=== PATIENT | male | born 1940 | race Caucasian/White ===

== ENCOUNTER 2018-09-29 13:11 | Inpatient (IN) | payer MEDICARE ==
[~2018-09-29] VITALS: Ht 177.8 cm; Wt 86.7 kg
[2018-09-29] VITALS (61 sets, daily range): BP systolic 96–99; BP diastolic 62; PULSE 64–70; TEMP 97.4–97.6; O2SAT 98–100
[2018-09-29 13:23] LABS: ARTERIAL BLD GAS O2 SATURATION 98.9 % (92-100); ARTERIAL BLD GAS TCO2 CT 37.1; ARTERIAL BLOOD GAS BASE EXCESS 10.8 (-2-2); ARTERIAL BLOOD GAS HCO3 35.6 meq/L (22-26); ARTERIAL BLOOD GAS PCO2 49.1 mmHg (35-45); ARTERIAL BLOOD GAS pH 7.48 (7.35-7.45)
[2018-09-29 13:24] LABS: ARTERIAL BLOOD GAS PO2 184.5 mmHg (80-100)
[2018-09-29 13:36] LABS: COLLECTION METHOD CLEAN CATCH
[2018-09-29] MEDS ORDERED: FOLIC ACID 11 MG/TA1 PO (13:43)
[2018-09-29 13:44] LABS: BASO % 0.3 % (0.0-2.0); EOS % 0.3 % (0-4.0); GRAN # 2.1 (1.4-6.5); GRAN % 60.7 % (42.2-75.2); LYMPH # 0.7 (1.2-3.4); LYMPH % 18.5 % (20.0-51.0); MEAN CELL VOLUME 106 fl (80.0-100.0); MEAN CORPUSCULAR HGB CONC 31 g/dl (33.0-37.0); MEAN PLATELET VOLUME 14.2 fl (7.4-10.4); MONO # 0.7 (0.1-0.6); MONO % 19.1 % (1.7-9.3); RED BLOOD COUNT 2.46 M/mm3 (4.20-5.60); REDCELL DISTRIBUTION WIDTH-CV 18.3 % (11.5-14.5)
[2018-09-29] MEDS ORDERED: IMDUR 60MG60 MG/TAB PO ×2 (13:44→17:57)
[2018-09-29] MEDS ORDERED: AMITIZA 8MCG8 MCG PO ×2 (13:44→17:56)
[2018-09-29] MEDS ORDERED: COREG 3.123.125 MG/T PO (13:45)
[2018-09-29] MEDS ORDERED: PROTONIX 40MG T40 MG PO (13:45)
[2018-09-29 13:47] LABS: HEMATOCRIT 26.1 % (42.0-52.0); HEMOGLOBIN 8.2 g/dl (13.5-18.0); MEAN CORPUSCULAR HEMOGLOBIN 33 pg (27.0-31.0)
[2018-09-29] MEDS ORDERED: VITAMIN B-1000 MCG/T PO (13:47)
[2018-09-29 13:48] LABS: PLATELET COUNT 42 K/mm3 (130-400)
[2018-09-29] MEDS ORDERED: NEURONTIN100 MG/CAP PO (13:48)
[2018-09-29] MEDS ORDERED: FERRO-TIME325 MG PO (13:48)
[2018-09-29] MEDS ORDERED: MICRO-K 10 EXT10 MEQ PO (13:49)
[2018-09-29 14:01] LABS: HYALINE CAST >12 /lpf; MUCOUS Present /lpf; PH 5 (5-8); SQUAMOUS EPITHELIAL 0-2 /hpf; URINE APPEARANCE Cloudy; URINE BACTERIA Rare /hpf; URINE BILIRUBIN Negative (NEGATIVE); URINE BLOOD Negative (NEGATIVE); URINE COLOR Yellow; URINE GLUCOSE Negative (NEGATIVE); URINE KETONE Negative (NEGATIVE); URINE LEUKOCYTE ESTERASE Negative (NEGATIVE); URINE NITRATE Negative (NEGATIVE); URINE PROTEIN(semi-quant) Negative (NEGATIVE)
[2018-09-29 14:11] LABS: ALBUMIN 3.3 gm/dL (3.5-5.0); BILIRUBIN,TOTAL 2.2 mg/dL (0.0-1.0); CREATININE, serum 1.91 mg/dL (0.66-1.25); POTASSIUM 4.5 mmol/L (3.4-5.0); TOTAL PROTEIN 6.3 gm/dL (6.4-8.2)
[2018-09-29] MEDS ORDERED: ASPIRIN 81M81 MG/TA2 PO (14:13)
[2018-09-29] MEDS ORDERED: BUMEX2 MG PO (14:13)
[2018-09-29] MEDS ORDERED: THEREMS1 TAB PO (14:13)
[2018-09-29] MEDS ORDERED: PLAVIX 75MG TAB75 MG PO (14:14)
[2018-09-29] MEDS ORDERED: BRINTELLIX10 ×2 (14:15→17:55)
[2018-09-29] MEDS ORDERED: LANTUS100 U/ML SQ (14:15)
[2018-09-29] MEDS ORDERED: NOVLOG SQ (14:16)
[2018-09-29] MEDS ORDERED: ALPHAGAN OPHTH D5 ML OU (14:17)
[2018-09-29] MEDS ORDERED: LIPITOR 10MG10 MG PO (14:17)
[2018-09-29] MEDS ORDERED: XANAX 0.5MG0.5 MG PO (14:18)
[2018-09-29 14:19] LABS: TROPONIN-I 0.475 ng/mL (0.000-0.035)
[2018-09-29] MEDS ORDERED: DESYREL 100MG100 MG PO (14:22)
[2018-09-29 14:49] LABS: INR 2.9 (0.8-3.0); PROTHROMBIN TIME 33.4 SECONDS (9.7-12.8)
--- NOTE | 2018-09-29 16:15 | NUR ---
Report recieved from LEA Reid
--- NOTE | 2018-09-29 17:30 | NUR ---
Pt arrived via cart from ED with NS infusing on straight tubing to RW IV. Pt unable to transfer self from cart to bed, slideboard utilized - all lines and tubes transfered without complications. Tafoya catheter in place with dependent drainage, bag contained several hundred mL's if dark yellow urine on arrival. Pt difficulty to awaken/arrouse, noxious stimuli and pronounced voice required to get attention of pt - still unable to follow commands. Hypotensive upon arrival as well - MD Ilia and JACIEL Monroy present at the bedside with pt's son and [id number]. No orders for central line or vasopressors recieved. DNR status confirmed/continued with MD and family together. All labs reviewed and MD aware of outside normal limits labs. Family left to head home and left all home meds carried in a trash-bag due to the large amount of bottles and punch-outs - pharmacy staff gone - Mary, Treasury Consultant took meds to pharmacy to lock up with pt label affixed to bag. Records from [facility] and [facility] attempted to obtain - unable to due to late hours/weekend
[2018-09-29] MEDS ORDERED: REGLAN 10MG10 MG/TAB PO (17:50)
[2018-09-29] MEDS ORDERED: MULTIVITAMIN PO (17:55)
[2018-09-29] MEDS ORDERED: COREG 6.256.25 MG/TA PO (17:57)
--- NOTE | 2018-09-29 19:07 | NUR ---
Car Body Designer contacted for pacemaker interrogation
--- NOTE | 2018-09-29 20:00 | NUR ---
PT ALERT TO PLACE AND SITUATION. PT UNAWARE OF TIME. PT ABLE TO FOLLOW COMMANDS. DOES MENTION MULTIPLE TIMES HIS DIVORCE.
--- NOTE | 2018-09-29 21:45 | NUR ---
HOSPITALIST LANETTE INFORMED PT LOW BP. 500ML BOLUS INITIATED. LOW BP CONTINUED FOLLOWING COMPLETION OF BOLUS, HOSPITALIST NOTIFIED. WILL CONTINUE TO MONITOR CLOSELY.
[2018-09-30] VITALS (784 sets, daily range): BP systolic 88–108; BP diastolic 54–68; PULSE 62–74; TEMP 97.4–98.1; O2SAT 75–100
[2018-09-30 00:12] LABS: TROPONIN-I 3 HR POST INITIAL 0.45 ng/mL (0.000-0.034)
[2018-09-30 06:03] LABS: BASO % 0.3 % (0.0-2.0); EOS % 0.6 % (0-4.0); LYMPH # 0.6 (1.2-3.4); LYMPH % 16.3 % (20.0-51.0); MEAN CELL VOLUME 108 fl (80.0-100.0); MEAN CORPUSCULAR HGB CONC 32 g/dl (33.0-37.0); MONO # 0.8 (0.1-0.6); MONO % 22.1 % (1.7-9.3); RED BLOOD COUNT 2.33 M/mm3 (4.20-5.60); REDCELL DISTRIBUTION WIDTH-CV 18.6 % (11.5-14.5)
[2018-09-30 06:04] LABS: HEMATOCRIT 25.1 % (42.0-52.0); HEMOGLOBIN 8.1 g/dl (13.5-18.0); MEAN CORPUSCULAR HEMOGLOBIN 35 pg (27.0-31.0); PLATELET COUNT 31 K/mm3 (130-400)
[2018-09-30 06:05] LABS: INR 2.9 (0.8-3.0); PROTHROMBIN TIME 32.9 SECONDS (9.7-12.8)
[2018-09-30 06:14] LABS: BILIRUBIN,TOTAL 1.8 mg/dL (0.0-1.0); CALCIUM 7.4 mg/dL (8.4-10.2); CREATININE, serum 1.61 mg/dL (0.66-1.25); POTASSIUM 4.2 mmol/L (3.4-5.0); TOTAL PROTEIN 5.9 gm/dL (6.4-8.2)
[2018-09-30 06:24] LABS: TROPONIN-I 0.389 ng/mL (0.000-0.035)
[2018-09-30 07:41] LABS: EOSINOPHIL 1 % (0-4); LYMPHOCYTE 30 % (20.0-51.0); NEUTROPHILS 56 % (42.0-75.2); PLATELET ESTIMATE DECREASED (NORMAL)
--- NOTE | 2018-09-30 08:00 | NUR ---
Pt with eyes closed, groaning loudly, denies pain "I just moan for no reason", oriented to person, , city and state, year, and location; unable to state reason for admission to hospital. Reported from LEA Lee that central line attempt to left internal jugular vein was leaking after insertion and therefore needed to be removed - review assessement for status. Pharmacy called - all home meds remain there - will have family take meds home when/if they come to visit today.
--- NOTE | 2018-09-30 09:23 | NUR ---
Keena from ultrasound performing ECHO
--- NOTE | 2018-09-30 12:35 | NUR ---
Patient lives at home with his son (Edwardo) and plans to return back home if all goes well with recovery. In the last 6 months patient has been to [facility], [facility], and [facility] for medical recovery needs. Patient uses a walker and scooter for mobility assistance, he does not currently have a primary care physician, and he does have advance directives completed. transaction advisory services manager will follow as needed for more details on his discharge based on his CHF and sepsis progress.
--- NOTE | 2018-09-30 13:10 | NUR ---
Edwardo (Son) present to visit for 10 min, meds brought from pharmacy and son took them home.
--- NOTE | 2018-09-30 14:52 | NUR ---
MD Thompson has spoken with both sons that share DPOA
[2018-09-30 15:23] LABS: TRICYCLIC ANTIDEPRESS URINE NEGATIVE
[2018-09-30 15:26] LABS: ACETAMINOPHEN < 10 ug/mL (10-30); ALCOHOL(ethanol),MEDICAL < 10 mg/dL; SALICYLATE < 1.0 mg/dL
[2018-09-30 16:11] LABS: ARTERIAL BLD GAS O2 SATURATION 96.2 % (92-100); ARTERIAL BLD GAS TCO2 CT 34.3; ARTERIAL BLOOD GAS BASE EXCESS 7.3 (-2-2); ARTERIAL BLOOD GAS HCO3 32.8 meq/L (22-26); ARTERIAL BLOOD GAS PCO2 51.3 mmHg (35-45); ARTERIAL BLOOD GAS PO2 94.3 mmHg (80-100); ARTERIAL BLOOD GAS pH 7.42 (7.35-7.45)
[2018-10-01] VITALS (1016 sets, daily range): BP systolic 90–107; BP diastolic 51–68; PULSE 70–87; TEMP 97.8–98.5; O2SAT 67–100
[2018-10-01 05:35] LABS: MEAN CELL VOLUME 110 fl (80.0-100.0); MEAN CORPUSCULAR HGB CONC 30 g/dl (33.0-37.0); RED BLOOD COUNT 2.58 M/mm3 (4.20-5.60)
[2018-10-01 05:45] LABS: INR 2.7 (0.8-3.0); PROTHROMBIN TIME 30.3 SECONDS (9.7-12.8)
[2018-10-01 05:46] LABS: HEMATOCRIT 28.3 % (42.0-52.0); HEMOGLOBIN 8.6 g/dl (13.5-18.0); MEAN CORPUSCULAR HEMOGLOBIN 33 pg (27.0-31.0)
[2018-10-01 05:47] LABS: PLATELET COUNT 33 K/mm3 (130-400)
[2018-10-01 05:48] LABS: ALBUMIN 3.2 gm/dL (3.5-5.0); BILIRUBIN,TOTAL 1.6 mg/dL (0.0-1.0); CALCIUM 7.8 mg/dL (8.4-10.2); CREATININE, serum 1.4 mg/dL (0.66-1.25); POTASSIUM 4.2 mmol/L (3.4-5.0); TOTAL PROTEIN 6.4 gm/dL (6.4-8.2)
--- NOTE | 2018-10-01 09:17 | NUR ---
MD Steph at bedside assessing pt
[2018-10-01 09:48] LABS: EOSINOPHIL 1 % (0-4); LYMPHOCYTE 39 % (20.0-51.0); NEUTROPHILS 49 % (42.0-75.2); NUCLEATED RED BLOOD CELL 3 (0-6); PLATELET ESTIMATE DECREASED (NORMAL)
[2018-10-01 09:49] LABS: ANISOCYTOSIS 2+; HYPOCHROMIA 1+; POLYCHROMASIA 1+; TARGET CELLS 1+
--- NOTE | 2018-10-01 12:49 | NUR ---
SW attended clinical rounding on patient. SW asked about PT/OT consult however would like to wait. SW to continue to follow.
--- NOTE | 2018-10-01 13:15 | NUR ---
Pt off unit to OR
[2018-10-01 13:58] LABS: RETIC # 0.07 M/mm3 (0.02-0.16); RETIC % 2.7 % (0.5-3.52)
[2018-10-01 14:21] LABS: IRON,SERUM 71 ug/dL (35-150)
[2018-10-01 14:30] LABS: TOTAL IRON BINDING CAPACITY 228 ug/dL (261-462)
[2018-10-01 14:57] LABS: FERRITIN 841 ng/mL (18-464)
--- NOTE | 2018-10-01 19:41 | NUR ---
Verified with Aguila, lift team technician, RVP negative for all strands. Removing from precautions at this time.
--- NOTE | 2018-10-01 20:00 | NUR ---
Patient assessment completed and charted at this time, please see documentation for details. Patient yelling out in bed, patient states there is no reason for him to be yelling, denies pain. Will continue to monitor and assess, bed alarm in place.
[2018-10-02] VITALS (1093 sets, daily range): BP systolic 80–115; BP diastolic 37–81; PULSE 74–81; TEMP 97.7–98.2; O2SAT 62–100
--- NOTE | 2018-10-02 00:15 | NUR ---
Patient continues to yell out without purpose. Reorienting patient frequently, monitoring patient from closely outside of room.
[2018-10-02 02:02] LABS: FOLATE (FOLIC ACID) 15.6 ng/mL (7.0-31.4)
[2018-10-02 05:04] LABS: MEAN CELL VOLUME 111 fl (80.0-100.0); MEAN CORPUSCULAR HGB CONC 31 g/dl (33.0-37.0); RED BLOOD COUNT 2.54 M/mm3 (4.20-5.60); REDCELL DISTRIBUTION WIDTH-CV 19.6 % (11.5-14.5)
[2018-10-02 05:15] LABS: BILIRUBIN,TOTAL 2.4 mg/dL (0.0-1.0); CALCIUM 7.9 mg/dL (8.4-10.2); CREATININE, serum 1.17 mg/dL (0.66-1.25); MAGNESIUM 2.4 mg/dL (1.6-2.3); POTASSIUM 4.2 mmol/L (3.4-5.0); TOTAL PROTEIN 6.1 gm/dL (6.4-8.2)
[2018-10-02 05:19] LABS: INR 2.6 (0.8-3.0); PROTHROMBIN TIME 29.4 SECONDS (9.7-12.8)
[2018-10-02 05:27] LABS: HEMATOCRIT 28.2 % (42.0-52.0); HEMOGLOBIN 8.6 g/dl (13.5-18.0); MEAN CORPUSCULAR HEMOGLOBIN 34 pg (27.0-31.0)
[2018-10-02 05:28] LABS: PLATELET COUNT 33 K/mm3 (130-400)
[2018-10-02 08:00] LABS: LYMPHOCYTE 31 % (20.0-51.0); NEUTROPHILS 61 % (42.0-75.2); NUCLEATED RED BLOOD CELL 2 (0-6); PLATELET ESTIMATE DECREASED (NORMAL)
--- NOTE | 2018-10-02 08:00 | NUR ---
PATIENT SITTING IN BED MOANING. PATIENT STATES HE IS NOT IN PAIN, BUT HAVING A LOT OF TROUBLE BREATHING. HE STATES THAT HE FEELS LIKE HE JUST CAN'T CATCH HIS BREATH. DR. CRAWFORD IN TO SEE PATIENT AND NEW ORDER RECEIVED FOR IV LASIX, CHEST XRAY AND BIPAP. PATIENT IS CURRENTLY NPO FOR A LEXISCAN TODAY.
[2018-10-02 08:01] LABS: HYPOCHROMIA 2+; POLYCHROMASIA 2+
--- NOTE | 2018-10-02 09:40 | NUR ---
Initial visit attempt; Patient resting, Nylon Winder spoke with patient's son letting him know Spiritual Care is available.
[2018-10-02 11:33] LABS: PARTIAL THROMBOPLASTIN TIME 42.1 SECONDS (26.0-37.0)
--- NOTE | 2018-10-02 12:00 | NUR ---
PATIENT SITTING IN BED. BIPAP IS OFF AT THIS TIME. PATIENT STATES HE IS NEVER DOING THAT AGAIN. HE WAS ABLE TO DRINK WATER WITHOUT DIFFICULTY. HE CONTINUES TO MOAN AND YELL OUT OCCASSIONALLY. I CONTINUE TO ASK THE PATIENT WHAT IS WRONG AND HE DOESN'T ANSWER AT ALL.
--- NOTE | 2018-10-02 16:00 | NUR ---
PATIENT RESTING QUIETLY IN ROOM AT THIS TIME.
--- NOTE | 2018-10-02 19:20 | NUR ---
REPORT GIVEN TO LEA BARAJAS.
--- NOTE | 2018-10-02 21:00 | NUR ---
When talking with pt during assessment pt asked if staff was able to get ahold of son. Per report from day shift pts son reported the need to run errands and would not be able to visit. Pt was notified this. Pt is moaning repeatedly. Will one minute deny any pain and another time when asked report pain although pt also reported difficulty breathing. Pt was sat up in bed although no obvious signs of resp distress and resp vitals are WNL. 2L O2 via NC is currently in place. Pt demonstrated the ability to turn from side to side in bed with no staff assistance. Pt stated to this nurse "I dont want to alone." Staff asked pt if there was a feeling that pt was going to and pt shook head up and down. When asked if thats what pt wanted pt shook head side to side.
[2018-10-03] VITALS (644 sets, daily range): BP systolic 91–108; BP diastolic 51–70; PULSE 72–86; TEMP 97.6–97.7; O2SAT 61–100
--- NOTE | 2018-10-03 01:45 | NUR ---
Pt began hollering out approximately 0100 and when nurse approached pt, pt kept asking for help and answered "sleeping" when nurse asked what help can be given. Decreased stimuli. Pt is currently resting quietly at this time.
--- NOTE | 2018-10-03 05:00 | NUR ---
Assessment complete. Pt has demonstrated through out the shift the ability to turn side to side. During assessment has moaned intermittently although is not as loud in tone as hollering out has been prior this shift. Pt was hollering out at approximately 0345 with a back rub provided. Pt reported wanting a drink of water at that time although water was within reach. Pt was instructed to get water if wanting a drink due to it being with in reach. Pt did not make any attempts to move for the beverage at that time and remained with eyes closed laying in bed.
[2018-10-03 05:51] LABS: MEAN CELL VOLUME 109 fl (80.0-100.0); MEAN CORPUSCULAR HGB CONC 31 g/dl (33.0-37.0); RED BLOOD COUNT 2.46 M/mm3 (4.20-5.60); REDCELL DISTRIBUTION WIDTH-CV 19.7 % (11.5-14.5)
[2018-10-03 06:04] LABS: ALBUMIN 2.7 gm/dL (3.5-5.0); BILIRUBIN,TOTAL 2.3 mg/dL (0.0-1.0); CREATININE, serum 1.07 mg/dL (0.66-1.25); MAGNESIUM 2.4 mg/dL (1.6-2.3); POTASSIUM 4.2 mmol/L (3.4-5.0); TOTAL PROTEIN 5.7 gm/dL (6.4-8.2)
[2018-10-03 06:11] LABS: INR 2.5 (0.8-3.0); PROTHROMBIN TIME 28.6 SECONDS (9.7-12.8)
[2018-10-03 06:22] LABS: HEMATOCRIT 26.8 % (42.0-52.0); HEMOGLOBIN 8.4 g/dl (13.5-18.0); MEAN CORPUSCULAR HEMOGLOBIN 34 pg (27.0-31.0)
[2018-10-03 06:23] LABS: PLATELET COUNT 40 K/mm3 (130-400)
--- NOTE | 2018-10-03 06:59 | NUR ---
Pt report provided to Gisselle TATE. Pt resting with eyes closed laying on right side in bed quietly at this time.
--- NOTE | 2018-10-03 07:10 | NUR ---
Bedside report received from LEA Eaton. Patient is currently sleeping. Will continue to monitor.
--- NOTE | 2018-10-03 08:30 | NUR ---
Dr. Mackay here to see patient. He keeps his eyes closed and when asked to open them, opens them only slightly. The patient just moans loudly, exclaiming "OH!" over and over again. The patient is asked questions by Dr. Mackay, but the patient does not respond. When I ask the patient if he wanted water, he nodded in response. The patient is given ice water with a straw and his AM pills. He takes them with no issue. Natasha, from , here to see patient at this time also and evaluates him throughout breakfast.
[2018-10-03 08:36] LABS: ANISOCYTOSIS 2+; BAND 5 % (0-10); EOSINOPHIL 1 % (0-4); HYPOCHROMIA 1+; LYMPHOCYTE 31 % (20.0-51.0); NEUTROPHILS 44 % (42.0-75.2); POLYCHROMASIA 1+
[2018-10-03 08:39] LABS: PLATELET ESTIMATE DECREASED (NORMAL)
--- NOTE | 2018-10-03 09:55 | NUR ---
GRISELDA attended clinical rounding on patient. There is a family meeting scheduled for 8:30 tomorrow am with Drs and son. GRISELDA called frankmiranda at [facility] and left vm. SW will contact son today.
--- NOTE | 2018-10-03 10:10 | NUR ---
Dr. Mcgowan here to round on this patient, he is updated on Dr. Mackay's wish for family meeting tomorrow morning. Patient evaluated then Dr. Mackay comes and speaks with Dr. Mcgowan. They ask me to call the son, Quinton to see when he might be here to see patient. I call the son, he states he is getting ready to come up to the hospital. Dr. Mcgowan states that he will speak to him regarding patient's current situation and discuss plan of care when the son gets here.
--- NOTE | 2018-10-03 10:47 | NUR ---
Initial visit; Patient stated he was hard of hearing, Hogshead Wrecker offered [place] in hopes that patient was receptive to jesture.
--- NOTE | 2018-10-03 11:28 | NUR ---
GRISELDA, Nurse, Dr Mcgowan, and Pallative care nurse Beba met with patients son Edwardo in person and other son Quinton Via phone to discuss palattive care vs agressive care. Dr Mcgowan discussed patients prognosis with the sons. Both sons are agreeable to him going comfort care today. Dr Mcgowan explained that he feels the patient could pass fast so they will keep him here for 24/48 hours to watch after switching him to comfort care. Patients son Quinton lives in [facility] and will make arrangements to come to [facility]. GRISELDA and Pallative care nurse discussed hospice house vs going home with hospice at discharge. SW will continue to follow and assist patient and family. GRISELDA contacted Shazia santana at [facility]. She reports they do have a DPOA and that she will fax it. Shazia santana explained that the is on the DPOA as first and the sons are secondary however the has advanced dementia and they were going through a split when he was there so she does not have the mental capacity to be making medical decisions.
--- NOTE | 2018-10-03 12:00 | NUR ---
Met with pt's son after meeting with group. He is working hard to get things done for his father. Plan for transition to comfort care is in place here. Son is aware that his father will remain in the hospital to see how he is doing on comfort care and that adjustments can be made as needed. Conrad's sister in law is in the ER so son is staying with her now but working with his brother on getting family here as possible. He did inquire about the shoes salesperson the [employer] could use as pt has a grandson in the [place]--I gave him the medical social worker's number and he already has my phone number. Will continue to support this pt and his family.
--- NOTE | 2018-10-03 12:38 | NUR ---
SON, AMAYA, TELLS ME THAT THE [facility] WILL BE CALLING TO CONFIRM PATIENT'S ILLNESS SO THAT THE PATIENT'S GRANDSON MAY RETURN HOME FROM [place] TO SEE PATIENT. [facility] CALLS AND CONFIRMATION GIVEN OF PATIENT'S ILLNESS.
--- NOTE | 2018-10-03 13:00 | NUR ---
Patient appears to be much more comfortable now that Comfort care has started. He prefers to lie on his right side, patient repositioned to help him be more comfortable. He is no longer moaning out in discomfort. Will continue to monitor.
--- NOTE | 2018-10-03 14:30 | NUR ---
Son, Bhupinder, updated on how the patient is doing since he calls for update at this time. Questions answered.
--- NOTE | 2018-10-03 14:47 | NUR ---
Pt appears to be resting comfortably at this time. Comfort quilt was provided.
--- NOTE | 2018-10-03 16:20 | NUR ---
Patient's son inquired about home options to nurse. Nurse relayed message to GRISELDA and GRISELDA student. GRISELDA and GRISELDA student met with patient's son and former [id number] to discuss choosing a home. GRISELDA student provided list of local homes in [place]. Patient's son stated they would be interested in cremation with services in [place]. SW suggested contacting the [place] home of their choice to discuss options. SW to continue to follow.
--- NOTE | 2018-10-03 16:25 | NUR ---
Call from Color Paste Mixer at this time d/t rhythm change on this patient. I go in to assess patient. No heartbeat heard, no pulse felt. Patient is not breathing at this time either. HR is very wide complex, michael cardic on tele. LEA Otto enters room to confirm passing of patient. Passing confirmed at 1628. She calls Dr. Mcgowan at this time. Son and Sister in Law at the bedside when patient passes. Emotional Support provided. Chaplain Kunal, called for pastoral support.
--- NOTE | 2018-10-03 16:52 | NUR ---
GRISELDA student called [employer]. GRISELDA met with patients son after he passed to discuss homes. He would like to go with [facility] in [facility]. GRISELDA contacted them and they report they will contact a local home here in [place] to hold patient over night and will pick him up tomorrow to transport to [place]. They will hold patient until other family members get to [place] and are able to say their goodbyes before they cremate. GRISELDA passed information on to Patients son who is agreeable. Phone number provided to house to call when patient is ready to be picked up. [facility] P# [phone]
--- NOTE | 2018-10-03 16:52 | NUR ---
Call placed to [facility]. Patient is not a candidate for Organ Donation due to age. Confirmation # [id number]
--- NOTE | 2018-10-03 18:30 | NUR ---
HOME IN [place] NOTIFIED THAT PATIENT'S BODY IS READY TO BE PICKED UP.
--- NOTE | 2018-10-03 19:28 | NUR ---
PATIENT LEAVES WITH HOME AT THIS TIME.
== END 2018-10-03 19:28 | disposition expired ==
LOC: COL.ER 13:11 → ICU 15:22
PROVIDERS: Family Medicine; Internal Medicine; Internal Medicine Pulmonary Disease; Nurse Practitioner Family; ADMIT Internal Medicine
PROC: 02HV33Z Insertion of Infusion Device into Superior Vena Cava, Percutaneous Approach (ICD-10-PCS; principal; 2018-10-01)
DX: R57.0 Cardiogenic shock (principal); G93.41 Metabolic encephalopathy; I21.A1 Myocardial infarction type 2; K72.00 Acute and subacute hepatic failure without coma; I50.22 Chronic systolic (congestive) heart failure; N17.9 Acute kidney failure, unspecified; E87.2 Acidosis; E87.3 Alkalosis; D61.818 Other pancytopenia; E46 Unspecified protein-calorie malnutrition; J90 Pleural effusion, not elsewhere classified; D68.9 Coagulation defect, unspecified; Z51.5 Encounter for palliative care; Z66 Do not resuscitate; I11.0 Hypertensive heart disease with heart failure; E11.40 Type 2 diabetes mellitus with diabetic neuropathy, unspecified; I25.10 Atherosclerotic heart disease of native coronary artery without angina pectoris; Z95.1 Presence of aortocoronary bypass graft; Z95.5 Presence of coronary angioplasty implant and graft; Z79.4 Long term (current) use of insulin; E78.5 Hyperlipidemia, unspecified; F41.8 Other specified anxiety disorders; Z95.0 Presence of cardiac pacemaker; Z79.01 Long term (current) use of anticoagulants; Z87.891 Personal history of nicotine dependence; E11.65 Type 2 diabetes mellitus with hyperglycemia; I08.1 Rheumatic disorders of both mitral and tricuspid valves; I25.5 Ischemic cardiomyopathy; I27.20 Pulmonary hypertension, unspecified; Z68.26 Body mass index [BMI] 26.0-26.9, adult
CPT/HCPCS: 99223-AI; 99233-AI; A4216; C1751; C9113; J0456; J0692; J0696; J1815; J1940; J2060; J2270; J2405; J3430; J7030; J7040; J7050; J7060; J7120